=== PATIENT | male | born 1960 | race Caucasian/White ===

== ENCOUNTER 2016-10-06 07:59 | Emergency (ER) | payer SELFPAY ==
[2016-10-06 08:12] VITALS: BP 117/79
[2016-10-06] MEDS ORDERED: AUGMENTIN 875 MG PO ONE (10:14)
[2016-10-06] MEDS ORDERED: MOTRIN PO ONE (10:14)
--- NOTE | 2016-10-06 18:07 | Emergency Department Report ---
Entered by ELOISE GUTHRIE, acting as scribe for BENITEZ EVANS PA. ED ENT HPI - General Chief complaint: Dental/Oral Stated complaint: SWOLLEN LEFT CHEEK Time Seen by Provider: 10/06/16 10:03 Source: patient Mode of arrival: Ambulatory Limitations: No Limitations - History of Present Illness Initial comments: 55 y/o presents to the ED c/o dental pain x 2 days. Associated symptoms include left sided face edema and headache but he denies ear pain, fever and chills. Patient states he has a bad tooth and swelling became worse yesterday after eating. No alleviating or aggravating factors. NKDA. TELLO complaint: tooth pain Onset/Timin -: days(s) Location: tooth # 1 - Partially missing, caries noted and tender to palpate 2 - Missing Consistency: constant Improves with: none Worsens with: none Context- Dental: history of dental caries Associated Symptoms: toothache, other (left sided face swelling, headache, denies: ear pain, fever, chills) - Related Data Previous Rx's Medication Instructions Recorded Last Taken Type HYDROcodone/APAP 10-325 [[place] 1 each PO Q6HR PRN #25 tablet 11/10/13 Unknown Rx 10-325 mg TAB] predniSONE [Deltasone] 20 mg PO TID #15 tab 11/10/13 Unknown Rx Acetaminophen/Codeine [Tylenol 1 tab PO Q6H PRN #10 tab 10/06/16 Unknown Rx /Codeine # 3 tab] Amoxicillin/K Clav Tab [Augmentin 1 tab PO Q12HR #20 tab 10/06/16 Unknown Rx 875 mg] Ibuprofen [Motrin 800 MG tab] 800 mg PO Q8H #90 tablet 10/06/16 Unknown Rx Allergies Allergy/AdvReac Type Severity Reaction Status Date / Time No Known Allergies Allergy Unverified 11/10/13 12:56 ED Dental HPI - General Chief complaint: Dental/Oral Stated complaint: SWOLLEN LEFT CHEEK Time Seen by Provider: 10/06/16 09:55 Source: patient Mode of arrival: Ambulatory Limitations: No Limitations - Related Data Previous Rx's Medication Instructions Recorded Last Taken Type HYDROcodone/APAP 10-325 [[place] 1 each PO Q6HR PRN #25 tablet 11/10/13 Unknown Rx 10-325 mg TAB] predniSONE [Deltasone] 20 mg PO TID #15 tab 11/10/13 Unknown Rx Acetaminophen/Codeine [Tylenol 1 tab PO Q6H PRN #10 tab 10/06/16 Unknown Rx /Codeine # 3 tab] Amoxicillin/K Clav Tab [Augmentin 1 tab PO Q12HR #20 tab 10/06/16 Unknown Rx 875 mg] Ibuprofen [Motrin 800 MG tab] 800 mg PO Q8H #90 tablet 10/06/16 Unknown Rx Allergies Allergy/AdvReac Type Severity Reaction Status Date / Time No Known Allergies Allergy Unverified 11/10/13 12:56 ED Review of Systems Comment: All other systems reviewed and negative Constitutional: denies: chills, fever ENT: dental pain. denies: ear pain Skin: other (left sided face edema) Neurological: headache ED Past Medical Hx - Past Medical History Previous Medical History?: No - Surgical History Past Surgical History?: No - Social History Smoking Status: Current Every Day Smoker Substance Use Type: Alcohol - Medications Home Medications: Home Medications Medication Instructions Recorded Confirmed Last Taken Type HYDROcodone/APAP 10-325 [[place] 1 each PO Q6HR PRN #25 tablet 11/10/13 Unknown Rx 10-325 mg TAB] predniSONE [Deltasone] 20 mg PO TID #15 tab 11/10/13 Unknown Rx Acetaminophen/Codeine [Tylenol 1 tab PO Q6H PRN #10 tab 10/06/16 Unknown Rx /Codeine # 3 tab] Amoxicillin/K Clav Tab [Augmentin 1 tab PO Q12HR #20 tab 10/06/16 Unknown Rx 875 mg] Ibuprofen [Motrin 800 MG tab] 800 mg PO Q8H #90 tablet 10/06/16 Unknown Rx ED Physical Exam - General Limitations: No Limitations General appearance: alert, in no apparent distress - Head Head exam: Present: atraumatic, normocephalic, normal inspection - Eye Eye exam: Present: normal appearance, PERRL, EOMI. Absent: scleral icterus, conjunctival injection, nystagmus, periorbital swelling, periorbital tenderness - ENT ENT exam: Present: normal exam, normal orophraynx, mucous membranes moist, normal external ear exam, other (tooth #14 caries noted, partially missing, tender to palpate, tooth #19 missing, no TMJ tenderness) - Neck Neck exam: Present: normal inspection, full ROM. Absent: tenderness, meningismus, lymphadenopathy, thyromegaly - Respiratory Respiratory exam: Present: normal lung sounds bilaterally. Absent: respiratory distress, wheezes, rales, rhonchi, stridor, chest wall tenderness, accessory muscle use, decreased breath sounds, prolonged expiratory - Cardiovascular Cardiovascular Exam: Present: regular rate, normal rhythm, normal heart sounds. Absent: bradycardia, tachycardia, irregular rhythm, systolic murmur, diastolic murmur, rubs, gallop - GI/Abdominal GI/Abdominal exam: Present: soft. Absent: tenderness, guarding, rebound - Extremities Exam Extremities exam: Present: normal inspection, full ROM, normal capillary refill. Absent: tenderness, pedal edema, joint swelling, calf tenderness - Back Exam Back exam: Present: normal inspection, full ROM. Absent: tenderness, CVA tenderness (R), CVA tenderness (L), muscle spasm, paraspinal tenderness, vertebral tenderness, rash noted - Neurological Exam Neurological exam: Present: alert, oriented X3 - Psychiatric Psychiatric exam: Present: normal affect, normal mood - Skin Skin exam: Present: warm, dry, intact, normal color. Absent: rash ED Course Vital Signs 10/06/16 10/06/16 08:10 10:19 Temperature 98.4 F Pulse Rate 55 L Respiratory 18 20 Rate Blood Pressure 117/79 O2 Sat by Pulse 99 Oximetry ED Medical Decision Making - Medical Decision Making 55-year-old male who presents with left-sided Facial pain secondary to odontogenic caries ED course: Patient received 875 mg of Augmentin and Motrin Odontogenic infection versus ear infection. Based upon history and physical examination, pain is a result of an infection of tooth number 14,19 and that the pain Pt feels on the right side of his face and towards the ear is referred pain from this infectious process. Pt has no evidence of acute impending airway compromise. At this point, patient will be discharged home on some antibiotics and pain trial, he will do well with an outpatient course of antibiotics. Follow up with the Dental Clinic as referred Vital signs are normal patient is in no acute distress. Pt had an effect uneventful ED stay ED Disposition Clinical Impression: Dental caries, Dental abscess Disposition: DC-01 TO HOME OR SELFCARE Is pt being admited?: No Does the pt Need Aspirin: No Condition: Stable Instructions: Dental Abscess (ED), Dental Caries (ED), Toothache (ED) Prescriptions: Acetaminophen/Codeine [Tylenol /Codeine # 3 tab] 1 tab PO Q6H PRN #10 tab PRN Reason: Pain Amoxicillin/K Clav Tab [Augmentin 875 mg] 1 tab PO Q12HR #20 tab Ibuprofen [Motrin 800 MG tab] 800 mg PO Q8H #90 tablet Referrals: PRIMARY CARE, [Primary Care Provider] - 3-5 Days Forms: Accompanied Note, Work/School Release Form(ED) Time of Disposition: 10:34 This documentation as recorded by the CLEVELAND riggs ELIZABETH,accurately reflects the service I personally performed and the decisions made by CRISTINA lowe OYINLOLA A PA.
== END 2016-10-06 10:52 | disposition home or self-care (01) ==
LOC: ED 07:59
DX: K04.7 Periapical abscess without sinus (principal); F17.210 Nicotine dependence, cigarettes, uncomplicated
CPT/HCPCS: 99282